=== PATIENT | female | born 1975 | race Caucasian/White ===

== ENCOUNTER 2025-01-13 14:51 | Inpatient (IN) | payer OTHER ==
[~2025-01-13] VITALS: Ht 152.4 cm; Wt 59.1 kg
[2025-01-13] MEDS: HYDROmorphone HCL 2 MG/ML SYRINGE IVP ONE (17:37)
[2025-01-13] MEDS: CefTRIAXone 1 GM/DEXTROSE 50 ML IV ONE (17:37)
[2025-01-13] MEDS: PERTUSS(ACELL),DIPH,TET/PF 0.5 ML SYRINGE [ADULT] IM. ONE (17:37)
[2025-01-13 17:47] LABS: ANION GAP 14 mmol/L (8-16); BASOPHILS % (AUTO) 1.6 % (0.0-2.0); CARBON DIOXIDE 23 mmol/L (22-29); CHLORIDE 91 mmol/L (98-107); CREATININE 0.62 mg/dL (0.60-1.30); EOSINOPHILS % (AUTO) 3.1 % (1.0-6.0); GLOMERULAR FILTR. RATE CALC > 60 mL/min (>60); GLUCOSE,RANDOM 93 mg/dL (70-110); HEMATOCRIT 33.9 % (36-46); HEMOGLOBIN 10.6 g/dL (12.0-16.0); LYMPHOCYTES # (AUTO) 1.1 K/uL (1.0-4.8); LYMPHOCYTES % (AUTO) 31.6 % (22.0-44.0); MEAN CORPUSCULAR HEMOGLOBIN 27.1 pg (26.0-34.0); MEAN CORPUSCULAR HGB CONC 31.3 G/dL (31.0-37.0); MEAN CORPUSCULAR VOLUME 86 fL (80-100); MONOCYTES # (AUTO) 0.2 K/uL (0.1-1.0); MONOCYTES % (AUTO) 5.9 % (2.0-9.0); NEUTROPHILS % (AUTO) 57.8 % (40.0-70.0); PLATELET COUNT (AUTO) 93 K/uL (150-450); POTASSIUM 4.2 mmol/L (3.5-5.1); RED BLOOD CELL COUNT(AUTO) 3.93 MIL/uL (4.00-5.20); RED CELL DISTRIBUTION WIDTH 20.5 % (11.5-14.5); SODIUM SERUM 128 mmol/L (136-145); UREA NITROGEN, BLOOD 1 mg/dL (7-18); WHITE BLOOD COUNT (AUTO) 3.4 K/uL (4.5-11.0)
[2025-01-13 17:53] LABS: ALBUMIN 3.2 g/dL (3.4-5.0); ALCOHOL, BLOOD (SERUM) 196 mg/dL (0-10); BILIRUBIN,DIRECT 0.5 mg/dL (0.00-0.20); BILIRUBIN,TOTAL 0.8 mg/dL (0.1-1.0); TOTAL PROTEIN, SERUM 9.3 g/dL (6.4-8.2)
[2025-01-13] MEDS: MAGNESIUM SULFATE 2 GM, MVI, ADULT NO.1 WITH VIT K 10 ML, THIAMINE 100 MG, FOLIC ACID 1... IV ONE (20:10)
[2025-01-13] MEDS: LORazepam 2 MG/ML VIAL IVP ONE (22:05)
[2025-01-13] MEDS: ONDANSETRON HCL 4 MG/2 ML VIAL IVP ONE (22:05)
[2025-01-13] MEDS ORDERED: ChlordiazePOXIDE HCL 25 MG CAPSULE PO PRN (23:45)
[2025-01-13] MEDS ORDERED: MAGNESIUM HYDROXIDE SUSPENSION 30 ML UDCUP PO PRN (23:45)
[2025-01-13] MEDS ORDERED: ACETAMINOPHEN 325 MG TABLET PO PRN (23:45)
[2025-01-13] MEDS ORDERED: ZOLPIDEM TARTRATE 5 MG TABLET PO PRN (23:45)
[2025-01-13] MEDS ORDERED: BISACODYL 10 MG RECTAL RECTAL SUPPOSITORY PR PRN (23:45)
[2025-01-13] MEDS ORDERED: MORPHINE SULFATE 2 MG/ML SYRINGE IVP PRN (23:45)
[2025-01-13] MEDS ORDERED: ONDANSETRON HCL 4 MG/2 ML VIAL IVP PRN (23:45)
[2025-01-13] MEDS ORDERED: ALBUTEROL SULFATE 2.5 MG/0.5 ML NEB SOLUTION NEB PRN (23:45)
[2025-01-13] MEDS ORDERED: IPRATROPIUM BROMIDE 0.5 MG/2.5 ML NEB SOLUTION NEB PRN (23:45)
[2025-01-14] VITALS (12 sets, daily range): BP systolic 118–148; BP diastolic 84–97; PULSE 89–108; RESP 18–20; TEMP 98.2–98.8; O2SAT 98–100
[2025-01-14] MEDS: HEPARIN SODIUM,PORCINE 5,000 UNITS/ML VIAL SQ SCH
[2025-01-14] MEDS: PIPERACILLIN/TAZO 3.375 GM/D5W 50 ML IV SCH
[2025-01-14] MEDS ORDERED: SODIUM CHLORIDE 0.9% 500 ML IV ONE (04:53)
[2025-01-14] MEDS ORDERED: ChlordiazePOXIDE HCL 25 MG CAPSULE PO PRN (07:00)
[2025-01-14] MEDS: PANTOPRAZOLE SODIUM 40 MG DR TABLET PO SCH (08:13)
[2025-01-14] MEDS: ChlordiazePOXIDE HCL 25 MG CAPSULE PO SCH (08:13)
[2025-01-14] MEDS ORDERED: MAGNESIUM OXIDE 400 MG TABLET PO PRN (11:45)
[2025-01-14] MEDS ORDERED: POTASSIUM CHL 10 MEQ/WATER 50 ML IV PRN (11:45)
[2025-01-14] MEDS ORDERED: MAGNESIUM SULFATE 2 GM/WATER 50 ML IV PRN (11:45)
[2025-01-14] MEDS ORDERED: MAGNESIUM SULFATE 4 GM/WATER 100 ML IV PRN (11:45)
[2025-01-14] MEDS: 1: MAGNESIUM SULFATE 2 GM, MVI, ADULT NO.1 WITH VIT K 10 ML, THIAMINE 100 MG, FOLIC ACID IV SCH (12:20)
[2025-01-14] MEDS: HYDROCODONE/ACETAMINOPHEN 5-325 MG TABLET PO PRN (13:41)
[2025-01-14] MEDS: AMPICILLIN SODIUM/SULBACTAM NA 3 GM in SODIUM CHLORIDE 0.9% 100 ML IV SCH (17:09)
[2025-01-15] VITALS (8 sets, daily range): BP systolic 111–132; BP diastolic 72–89; PULSE 80–96; RESP 18–19; TEMP 97.6–98.2; O2SAT 96–98
[2025-01-15] MEDS ORDERED: SODIUM CHLORIDE 0.9% 1,000 ML ONE (04:10)
[2025-01-16 06:49] LABS: BASOPHILS % (AUTO) 1.7 % (0.0-2.0); EOSINOPHILS % (AUTO) 6.9 % (1.0-6.0); LYMPHOCYTES # (AUTO) 0.7 K/uL (1.0-4.8); LYMPHOCYTES % (AUTO) 28.8 % (22.0-44.0); MEAN CORPUSCULAR HEMOGLOBIN 27.3 pg (26.0-34.0); MEAN CORPUSCULAR HGB CONC 30.6 G/dL (31.0-37.0); MEAN CORPUSCULAR VOLUME 89 fL (80-100); MONOCYTES # (AUTO) 0.3 K/uL (0.1-1.0); MONOCYTES % (AUTO) 12.4 % (2.0-9.0); NEUTROPHILS # (AUTO) 1.1 K/uL (1.8-7.7); NEUTROPHILS % (AUTO) 50.2 % (40.0-70.0); RED BLOOD CELL COUNT(AUTO) 2.99 MIL/uL (4.00-5.20); RED CELL DISTRIBUTION WIDTH 19.7 % (11.5-14.5); WHITE BLOOD COUNT (AUTO) 2.3 K/uL (4.5-11.0)
[2025-01-16] MEDS ORDERED: ChlordiazePOXIDE HCL 10 MG CAPSULE PO PRN (07:00)
[2025-01-16 07:05] LABS: HEMOGLOBIN 8.2 g/dL (12.0-16.0); PLATELET COUNT (AUTO) 55 K/uL (150-450)
[2025-01-16 07:06] LABS: HEMATOCRIT 26.6 % (36-46)
[2025-01-16 07:10] LABS: ALANINE AMINOTRANSFERASE 22 U/L (12-78); ALBUMIN 1.7 g/dL (3.4-5.0); ALKALINE PHOSPHATASE 207 U/L (46-116); ANION GAP 5 mmol/L (8-16); ASPARTATE AMINOTRANSFERASE 55 U/L (15-37); BILIRUBIN,TOTAL 0.6 mg/dL (0.1-1.0); CALCIUM, TOTAL 7.6 mg/dL (8.8-10.5); CARBON DIOXIDE 28 mmol/L (22-29); CHLORIDE 106 mmol/L (98-107); CREATININE 0.58 mg/dL (0.60-1.30); GLOMERULAR FILTR. RATE CALC > 60 mL/min (>60); GLUCOSE,RANDOM 99 mg/dL (70-110); SODIUM SERUM 139 mmol/L (136-145); TOTAL PROTEIN, SERUM 5.8 g/dL (6.4-8.2); UREA NITROGEN, BLOOD 5 mg/dL (7-18)
[2025-01-16 07:17] VITALS: BP 123/80; PULSE 85; RESP 19; TEMP 98.4; O2SAT 98
[2025-01-16 08:00] VITALS: BP 123/80; PULSE 85; RESP 19; TEMP 98.4; O2SAT 98
[2025-01-16 08:06] VITALS: BP 123/84; PULSE 83; RESP 18; TEMP 98.4; O2SAT 98
[2025-01-16] MEDS: ChlordiazePOXIDE HCL 10 MG CAPSULE PO SCH (09:00)
[2025-01-16] MEDS ORDERED: SODIUM CHLORIDE 0.9% 1,000 ML ONE (11:44)
[2025-01-16] MEDS: POTASSIUM CHLORIDE 20 MEQ ER TABLET PO PRN (12:18)
[2025-01-16 16:00] VITALS: BP 136/86; PULSE 92; RESP 18; TEMP 98.2; O2SAT 96
[2025-01-16 19:45] VITALS: BP 133/94; PULSE 85; RESP 18; TEMP 98.4; O2SAT 99
[2025-01-17 05:30] VITALS: BP 142/87; PULSE 75; RESP 18; TEMP 98.1; O2SAT 98
[2025-01-17 06:56] LABS: HEMOGLOBIN 8.6 g/dL (12.0-16.0); LYMPHOCYTES # (AUTO) 0.8 K/uL (1.0-4.8); LYMPHOCYTES % (AUTO) 35.4 % (22.0-44.0); MEAN CORPUSCULAR HEMOGLOBIN 27.5 pg (26.0-34.0); MEAN CORPUSCULAR HGB CONC 30.6 G/dL (31.0-37.0); MEAN CORPUSCULAR VOLUME 90 fL (80-100); MONOCYTES # (AUTO) 0.3 K/uL (0.1-1.0); MONOCYTES % (AUTO) 14.1 % (2.0-9.0); NEUTROPHILS # (AUTO) 0.9 K/uL (1.8-7.7); NEUTROPHILS % (AUTO) 41.5 % (40.0-70.0); PLATELET COUNT (AUTO) 63 K/uL (150-450); RED BLOOD CELL COUNT(AUTO) 3.11 MIL/uL (4.00-5.20); RED CELL DISTRIBUTION WIDTH 20.2 % (11.5-14.5); WHITE BLOOD COUNT (AUTO) 2.2 K/uL (4.5-11.0)
[2025-01-17 07:50] VITALS: BP 143/99; PULSE 86; RESP 18; TEMP 97.7; O2SAT 99
[2025-01-17] MEDS: ChlordiazePOXIDE HCL 10 MG CAPSULE PO PRN (08:26)
[2025-01-17] MEDS: LOPERAMIDE HCL 2 MG CAPSULE PO PRN (15:23)
[2025-01-17 15:40] VITALS: BP 131/92; PULSE 85; RESP 20; TEMP 98.4; O2SAT 99
[2025-01-17 20:00] VITALS: BP 127/90; PULSE 87; RESP 18; TEMP 97.7; O2SAT 99
[2025-01-18 05:16] VITALS: BP 125/78; PULSE 77; RESP 18; TEMP 97.7; O2SAT 97
[2025-01-18 07:07] LABS: BASOPHILS % (AUTO) 1.2 % (0.0-2.0); HEMATOCRIT 26.9 % (36-46); HEMOGLOBIN 8.5 g/dL (12.0-16.0); LYMPHOCYTES # (AUTO) 0.8 K/uL (1.0-4.8); LYMPHOCYTES % (AUTO) 35.7 % (22.0-44.0); MEAN CORPUSCULAR HEMOGLOBIN 27.9 pg (26.0-34.0); MEAN CORPUSCULAR HGB CONC 31.5 G/dL (31.0-37.0); MEAN CORPUSCULAR VOLUME 88 fL (80-100); MONOCYTES # (AUTO) 0.4 K/uL (0.1-1.0); MONOCYTES % (AUTO) 15.8 % (2.0-9.0); NEUTROPHILS # (AUTO) 0.9 K/uL (1.8-7.7); NEUTROPHILS % (AUTO) 37.3 % (40.0-70.0); PLATELET COUNT (AUTO) 66 K/uL (150-450); RED BLOOD CELL COUNT(AUTO) 3.04 MIL/uL (4.00-5.20); RED CELL DISTRIBUTION WIDTH 20.4 % (11.5-14.5); WHITE BLOOD COUNT (AUTO) 2.3 K/uL (4.5-11.0)
[2025-01-18 07:48] VITALS: BP 155/97; PULSE 86; RESP 20; TEMP 97.9; O2SAT 100
[2025-01-18 08:54] VITALS: BP 153/88; PULSE 89; RESP 19; TEMP 98.1; O2SAT 99
[2025-01-18] MEDS ORDERED: AMOX-457 PO (12:22)
[2025-01-18] MEDS ORDERED: ACET-3385 PO (12:23)
[2025-01-18 16:14] VITALS: BP 141/85; PULSE 100; RESP 19; TEMP 99.1; O2SAT 97
== END 2025-01-18 19:15 | DRG 383 ==
LOC: EMS 14:51 → EDH 23:36 → 4E 01-14 01:06
PROVIDERS: ADMIT Hospitalist; ATTEND Hospitalist
PROC: 2W1DX6Z Compression of Left Lower Arm using Pressure Dressing (ICD-10-PCS; principal; 2025-01-16)
DX: L03.114 Cellulitis of left upper limb (principal); D61.818 Other pancytopenia; D84.9 Immunodeficiency, unspecified; K76.6 Portal hypertension; E87.1 Hypo-osmolality and hyponatremia; K70.30 Alcoholic cirrhosis of liver without ascites; S51.802A Unspecified open wound of left forearm, initial encounter; F10.229 Alcohol dependence with intoxication, unspecified; Z91.199 Patient's noncompliance with other medical treatment and regimen due to unspecified reason; W54.0XXA Bitten by dog, initial encounter; Y93.89 Activity, other specified; Y92.89 Other specified places as the place of occurrence of the external cause; Y99.8 Other external cause status
CPT/HCPCS: 80048; 80053; 80076; 82040; 83735; 84132; 84703; 85025; 87070; 87205; 90715; 99285; G0378; G0480; J0295; J0696; J1171; J1644; J2060; J2405; J2543; J3411; J3475; J3490; J7030; J7040; J7050

== ENCOUNTER 2025-04-21 12:50 | Inpatient (IN) | payer OTHER ==
[~2025-04-21] VITALS: Ht 152.4 cm; Wt 68.2 kg
[~2025-04-21 12:50] MED LIST: ACET-3385 PO; AMOX-457 PO
[2025-04-21 14:22] LABS: PLATELET COUNT (AUTO) 130 K/uL (150-450); RED BLOOD CELL COUNT(AUTO) 4.45 MIL/uL (4.00-5.20); RED CELL DISTRIBUTION WIDTH 21.8 % (11.5-14.5); WHITE BLOOD COUNT (AUTO) 3.8 K/uL (4.5-11.0)
[2025-04-21 14:30] LABS: CALCIUM, TOTAL 8.0 mg/dL (8.8-10.5); CREATININE 0.75 mg/dL (0.60-1.30); GLOMERULAR FILTR. RATE CALC > 60 mL/min (>60); GLUCOSE,RANDOM 83 mg/dL (70-110); SODIUM SERUM 137 mmol/L (136-145); UREA NITROGEN, BLOOD 7 mg/dL (7-18)
[2025-04-21] MEDS: LORazepam 2 MG/ML VIAL IM ONE (14:34)
[2025-04-21] MEDS: ONDANSETRON 4 MG TABLET PO ONE (14:34)
[2025-04-21 14:39] LABS: TROPONIN I-HIGH SENSITIVITY 5 ng/L (<51)
[2025-04-21 14:41] LABS: LACTIC ACID 6.9 mmol/L (0.4-2.0)
[2025-04-21 14:44] LABS: RBC MORPHOLOGY COMMENT ABNORMAL RBC MORPH
[2025-04-21] MEDS: LORazepam 2 MG/ML VIAL IVP ONE (15:43)
[2025-04-21] MEDS: MAGNESIUM SULFATE 2 GM, MVI, ADULT NO.1 WITH VIT K 10 ML, THIAMINE 100 MG, FOLIC ACID 1... IV ONE (15:46)
[2025-04-21] MEDS ORDERED: ONDANSETRON HCL 4 MG/2 ML VIAL IVP PRN (16:15)
[2025-04-21] MEDS ORDERED: MAGNESIUM HYDROXIDE SUSPENSION 30 ML UDCUP PO PRN (16:15)
[2025-04-21] MEDS ORDERED: ACETAMINOPHEN 325 MG TABLET PO PRN (16:15)
[2025-04-21 20:05] VITALS: BP 120/90; PULSE 104; RESP 18; TEMP 98.4; O2SAT 96
[2025-04-21] MEDS: LORazepam 2 MG/ML VIAL IVP PRN (20:41)
[2025-04-21] MEDS: FAMOTIDINE 20 MG TABLET PO SCH (20:41)
[2025-04-21] MEDS ORDERED: 1: MAGNESIUM SULFATE 2 GM, MVI, ADULT NO.1 WITH VIT K 10 ML, THIAMINE 100 MG, FOLIC ACID IV SCH (23:00)
[2025-04-21] MEDS: SODIUM CHLORIDE 0.9% 1,000 ML IV ONE (23:24)
[2025-04-22 05:29] VITALS: BP 150/97; PULSE 96; RESP 18; TEMP 98.2; O2SAT 97
[2025-04-22 08:00] VITALS: BP 148/102; PULSE 86; RESP 20; TEMP 97.9; O2SAT 98
[2025-04-22 10:00] VITALS: BP 149/95
[2025-04-22 11:11] VITALS: BP 143/98
[2025-04-22 12:42] LABS: APPEARANCE,URINE HAZY (CLEAR); GLUCOSE, URINE (UA) NEGATIVE (NEGATIVE); LEUKOCYTE ESTERASE ,URINE LARGE (NEGATIVE); NITRATE,URINE NEGATIVE (NEGATIVE); OCCULT BLOOD,URINE NEGATIVE (NEGATIVE); SPECIFIC GRAVITIY, URINE 1.009 (1.003-1.030)
[2025-04-22] MEDS: 1: MAGNESIUM SULFATE 2 GM, MVI, ADULT NO.1 WITH VIT K 10 ML, THIAMINE 100 MG, FOLIC ACID IV SCH (14:09)
[2025-04-22 16:50] VITALS: BP 133/98; PULSE 91; RESP 19; TEMP 99; O2SAT 99
[2025-04-22 20:22] VITALS: BP 136/86; PULSE 97; RESP 18; TEMP 98.1; O2SAT 96
[2025-04-23 04:43] VITALS: BP 125/85; PULSE 84; RESP 18; TEMP 98.2; O2SAT 95
[2025-04-23 07:53] VITALS: BP 126/87; PULSE 93; RESP 18; TEMP 98.8; O2SAT 100
== END 2025-04-23 13:13 | disposition home or self-care (01) | DRG 280 ==
LOC: EMS 12:50 → EDH 16:06 → 4E 19:29
PROVIDERS: ADMIT Internal Medicine; ATTEND Internal Medicine
DX: K70.30 Alcoholic cirrhosis of liver without ascites (principal); D61.818 Other pancytopenia; F10.139 Alcohol abuse with withdrawal, unspecified; E86.0 Dehydration; Y90.9 Presence of alcohol in blood, level not specified; S51.809A Unspecified open wound of unspecified forearm, initial encounter; X58.XXXA Exposure to other specified factors, initial encounter; Y90.2 Blood alcohol level of 40-59 mg/100 ml; Y93.89 Activity, other specified; Y92.89 Other specified places as the place of occurrence of the external cause; Y99.8 Other external cause status
CPT/HCPCS: 80048; 81001; 83605; 83690; 84484; 84703; 85025; 87077; 87086; 93005; 96365; 96372; 96375; 99285; G0378; G0480; J2060; J3411; J3475; J3490; J7030; Q0162